=== PATIENT | female | born 1970 | race Caucasian/White ===

== ENCOUNTER → 2018-06-16 | Outpatient (CLI) | payer BC ==
[~2018-06-16] MED LIST: ACET-1966 PO; IBUP-136 PO
== END ==
LOC: LAB 15:12
PROVIDERS: ATTEND Surgery
DX: D22.5 Melanocytic nevi of trunk (principal)
CPT/HCPCS: 88305

== ENCOUNTER → 2018-09-15 | Outpatient (REF) | payer BC ==
[2018-09-15 14:27] LABS: PLATELET COUNT, AUTOMATED 301 K/uL (150-450)
== END ==
PROVIDERS: ATTEND Nurse Practitioner Family
DX: R07.9 Chest pain, unspecified (principal); R00.0 Tachycardia, unspecified
CPT/HCPCS: 82040; 82247; 82310; 82374; 82435; 82565; 82947; 84075; 84132; 84155; 84295; 84443; 84450; 84460; 84484; 84520; 85025

== ENCOUNTER → 2019-04-12 | Outpatient (CLI) | payer BC ==
--- NOTE | 2019-04-12 17:24 | RADIOLOGY IMAGING REPORT ---
FACILITY: [facility] PATIENT NAME: Genaro Sommer : 1970 MR: [id number] V: [id number] EXAM DATE: ORDERING PHYSICIAN: ZACHARY ZAMBRANO TECHNOLOGIST: Location: [facility] - [place] Patient: Genaro Sommer : 1970 Visit/Account:[id number] Date of Sevice: 04/12/2019 Technique: CHEST PA LAT HISTORY: cough COMPARISON: None available Findings: The lungs are clear. No pleural effusion or pneumothorax. The cardiomediastinal silhouett e is unremarkable. Impression: 1. No acute cardiopulmonary process. Report Dictated By: Carlos Ambrocio DO at 04/12/2019 5:17 PM Report E-Signed By: Carlos Ambrocio DO at 04/12/2019 5:20 PM WSN:[id number]
--- NOTE | 2019-04-12 17:26 | RADIOLOGY IMAGING REPORT ---
FACILITY: [facility] PATIENT NAME: Genaro Sommer : 1970 MR: [id number] V: [id number] EXAM DATE: ORDERING PHYSICIAN: ZACHARY ZAMBRANO TECHNOLOGIST: Location: [facility] - [place] Patient: Genaro Sommer : 1970 Visit/Account:[id number] Date of Sevice: 04/12/2019 Technique: CERVICAL SPINE 2 OR 3 VIEW HISTORY: neck pain Comparison studies: None FINDINGS: There is no acute fracture. Straightening of the normal cervical lordosis is present which may be secondary to patient positioning or muscular spasm. Uncovertebral facet arthropathy is noted. There is intervertebral disc space narrowing and endplate osteophyte formation. These findings are mo st conspicuous within the mid and lower cervical spine. The vertebral body heights are preserved. No prevertebral soft tissue swelling. IMPRESSION: 1. Degenerative findings of the cervical spine as characterized above. Report Dictated By: Carlos Ambrocio DO at 04/12/2019 5:20 PM Report E-Signed By: Carlos Ambrocio DO at 04/12/2019 5:21 PM WSN:[id number]
--- NOTE | 2019-04-12 17:27 | RADIOLOGY IMAGING REPORT ---
FACILITY: [facility] - [place] PATIENT NAME: Genaro Sommer : 1970 MR: [id number] V: [id number] EXAM DATE: ORDERING PHYSICIAN: ZACHARY ZAMBRANO TECHNOLOGIST: Location: [facility] - [place] Patient: Genaro Sommer : 1970 Visit/Account:[id number] Date of Sevice: 04/12/2019 Technique: HIP RIGHT HISTORY: neck pain Comparison studies: None FINDINGS: There is no acute fracture. Degenerative changes are noted at the pubic symphysis. The alig nment of the right hip is preserved. There is marginal osteophyte formation within the right femoroac etabular joint. IMPRESSION: 1. Mild degenerative findings of the right hip as above. Report Dictated By: Carlos Ambrocio DO at 04/12/2019 5:21 PM Report E-Signed By: Carlos Ambrocio DO at 04/12/2019 5:22 PM WSN:[id number]
== END ==
LOC: RAD 16:21
PROVIDERS: ATTEND Internal Medicine
DX: M47.892 Other spondylosis, cervical region (principal); M16.11 Unilateral primary osteoarthritis, right hip; R05 Cough
CPT/HCPCS: 71046; 72040

== ENCOUNTER → 2019-04-13 | Outpatient (CLI) | payer BC ==
[2019-04-13 07:54] LABS: PLATELET COUNT, AUTOMATED 293 K/uL (150-450)
[2019-04-13 08:23] LABS: LDL CHOLESTEROL 132 mg/dl
== END ==
LOC: LAB 07:43
PROVIDERS: ATTEND Internal Medicine
DX: J45.909 Unspecified asthma, uncomplicated (principal); R05 Cough
CPT/HCPCS: 36415; 82040; 82247; 82310; 82374; 82435; 82465; 82565; 82947; 83718; 84075; 84132; 84155; 84295; 84443; 84450; 84460; 84478; 84520; 85025

== ENCOUNTER → 2019-04-18 | Outpatient (CLI) | payer BC | LOC: RESP 00:12 | PROVIDERS: ATTEND Internal Medicine | DX: J98.4 Other disorders of lung (principal) | CPT/HCPCS: 94060; 94726; 94729 ==

== ENCOUNTER → 2019-04-21 | Outpatient (CLI) | payer BC ==
--- NOTE | 2019-04-21 16:10 | RADIOLOGY IMAGING REPORT ---
FACILITY: [facility] - [place] PATIENT NAME: Genaro Sommer : 1970 MR: [id number] V: [id number] EXAM DATE: ORDERING PHYSICIAN: ZACHARY ZAMBRANO TECHNOLOGIST: Location: [facility] Patient: Genaro Sommer : 1970 Visit/Account:[id number] Date of Sevice: 04/21/2019 Exam type: SCOLIOSIS SERIES History: Right Hip and neck pain Comparison: Two-view chest April 12, 2019. Findings: There is a 22 degrees dextroconvex scoliosis of the thoracic spine with curvature centered around T9- 10. There is a 34.9 degrees levoconvex scoliosis of the lumbar spine with the curvature centered about L1 -2. Multilevel spondylotic changes identified IMPRESSION: 1. S-shaped scoliosis of the thoracal lumbar spine with a 22 degrees dextroconvex scoliosis of the t horacic spine and a 4.9 degrees levoconvex scoliosis of the lumbar spine Report Dictated By: Yelitza Hills MD at 04/21/2019 4:01 PM Report E-Signed By: Yelitza Hills MD at 04/21/2019 4:06 PM WSN:[email or web address]
== END ==
LOC: RAD 15:14
PROVIDERS: ATTEND Internal Medicine
DX: M41.25 Other idiopathic scoliosis, thoracolumbar region (principal)
CPT/HCPCS: 72081

== ENCOUNTER 2019-05-05 12:48 | Outpatient (RCR) | payer BC ==
--- NOTE | 2019-04-19 14:18 | PT INITIAL EVALUATION ---
MEDICAL DIAGNOSIS: neck pain, hip pain R TREATMENT DIAGNOSIS: same DATE OF ONSET: 04/19/16 SUBJECTIVE: Genaro Sommer presents to physical therapy with complaints of neck pain and R hip pain that started a long time ago. She reports that her neck pain started in her teenager years and over the years she has been taking Tylenol to combat the pain; however, recently she has had elevated liver enzymes. As a result, she has taken the Tylenol out of her daily life and the neck pain has become unmanageable; therefore, she would like to see if we have any techniques to improve the neck pain and manage it for the future so that she does not have increased risk for problems as she ages. She reports that her hip pain started approximately 5 years ago and she thought that daily exercise would improve her pain. She states that the exercise has not improved the pain in her hip but has abolished her pain in the R knee. Furthermore, she noticed changes within her hip that could be related to the scoliotic changes over the last 3-4 years. She reports that she has a pinching sensation with squatting and gets stuck due to the hip pain. Furthermore, she reports that lunges are difficult and feels like her R LE is much weaker than her L LE. She reports that her neck pain is constant and her R hip pain only occurs with certain movements. Pain location is L levator, [place] . Pain scale is 5 on a ten point pain scale. REHAB PROBLEM LIST: Increased Pain Decreased ROM Decreased Strength Decreased Endurance Decreased Balance Decreased Function Decreased ADL's Decreased Mobility Decreased Gait PREVIOUS MEDICAL HISTORY: See EMR OCCUPATION: Health OBJECTIVE: Posture: She demonstrates minimal changes with forward head, B rounded shoulders, increased thoracic kyphosis, and decreased lumbar lordosis ROM: Cervical AROM: flexion: moderate restriction with muscular end feel, extension: minimal restriction with normal end feel. R sidebending: moderate restriction with muscular tightness on R cervical spine. L sidebending: moderate restriction with muscular tightness on L cervical spine. R rotation: moderate restriction with muscular tightness and pinching on the L. L rotation: minimal restriction with muscular tightness. Protrusion: NIL with normal end feel. Retraction: moderate restriction with pinching end feel. Will assess R hip next session Strength: R UE: 4/5. L LE: 5/5. R LE: 4/5. Palpation: TTP: L levator, [place], R anterior hip Sensation: Will test next session Special Tests: Repeated RET: pinching sensation during the movement and better following. Repeated RET with extension: pinching sensation during the movement and better following with increased cervical AROM following. Will assess R hip next session Mobility: Independent Gait: She demonstrated normal gait mechanics with minimal deviations of decreased velocity, increased lateral trunk movements, and decreased pelvic mobility. ASSESSMENT: Timethea will benefit from skilled physical therapy addressing the listed impairments to improve function and QOL. Her provisional cervical classification is posterior derangement that responded to extension based principles that demonstrated increased cervical AROM in all directions and normalized end feels. She is independent in her specific exercise. Short Term Goals 2 weeks: Pt will demonstrate cervical directional preference to improve function and QOL. 4 weeks: If pt demonstrates directional preference, she will demonstrate increased cervical AROM, centralized pain, and improved function and QOL. 6 weeks: If pt demonstrates directional preference, she will demonstrate abolished cervical pain, increased cervical AROM, and return to prior level of function. 8 weeks: Pt will demonstrate increased hip mobility with abolished popping and able to perform full squat without any pain to improve function and QOL. Patient's Goals prepare for the future in improving cervical spine and hip to prevent problems in the future or to prevent disability in her older years PLAN: Patient to be seen for Manual Therapy/STM/MET Strengthening/condition Range of Motion Spinal Stabilization Work Hardening/Cond Stretching Neuromuscular Re-ed Closed Chain Program Posture/Body mechanics Gait Trg/Balance Trg Home Exercise Program Therapeutic Activities 2x/Week for 2 Months If you have any questions, comments, or concerns about this report or plan, please contact me at . Thank you, Rupesh Pisano, PT, DPT MTDD
[~2019-05-05 12:48] MED LIST changes: +BUDE10.25 IH; +FLUT16SP19 NS
--- NOTE | 2019-05-17 12:59 | PT PLAN OF CARE ---
Physician: Bebo Tate MD Patient is being seen: 2x/week Therapist: Rupesh Pisano, PT, DPT Medical Diagnosis: neck pain, hip pain R Treatment Diagnosis: same Date of Onset: 04/19/16 Date of Initial Evaluation: 04/19/19 Date patient was last seen: 05/05/19 Number of treatments: 6 Number of cancellations/No shows: 0 INTERVENTIONS: Manual Therapy/STM/MET Strengthening/condition Range of Motion Spinal Stabilization Work Hardening/Cond Stretching Neuromuscular Re-ed Closed Chain Program Posture/Body mechanics Gait Trg/Balance Trg Home Exercise Program Therapeutic Activities GOALS: 2 weeks: Pt will demonstrate cervical directional preference to improve function and QOL. MET 4 weeks: If pt demonstrates directional preference, she will demonstrate increased cervical AROM, centralized pain, and improved function and QOL MET 6 weeks: If pt demonstrates directional preference, she will demonstrate abolished cervical pain, increased cervical AROM, and return to prior level of function. MET 8 weeks: Pt will demonstrate increased hip mobility with abolished popping and able to perform full squat without any pain to improve function and QOL. Progressed PATIENT'S GOAL: prepare for the future in improving cervical spine and hip to prevent problems in the future or to prevent disability in her older years Status of Patient's Goals: Progressed well with cervical spine Patient Compliance: Progressed well. Prognosis: Good Reasons for continuing therapy: This is a discharge note for Genaro Sommer. She reports that her insurance runs out this week and will not have insurance for another month or so. However, she reports that her neck is doing well and has abolished cervical neck pain and is pleased with her specific exercise and how to move forward with her program. Furthermore, she reports that her low back and hip pain are decreasing but it has not responded as well as the cervical spine. She reports that she feels like she knows how to move forward to improve function and QOL. As a result, she will be discharged from PT to [facility]. Posture: She demonstrates minimal changes with forward head, B rounded shoulders, increased thoracic kyphosis, and decreased lumbar lordosis ROM: Cervical AROM: flexion: NIL with muscular end feel, extension: NIL with normal end feel. R sidebending: NIL with muscular tightness on R cervical spine. L sidebending: NIL with muscular tightness on L cervical spine. R rotation: NIL with muscular tightness and pinching on the L. L rotation: NIL with muscular tightness. Protrusion: NIL with normal end feel. Retraction: NIL with normalized end feel. Will assess R hip next session Strength: R UE: 4/5. L LE: 5/5. R LE: 4/5. Palpation: TTP: L levator, [place], R anterior hip Special Tests: Repeated RET with extension Mobility: Independent If you have any questions, please contact me at [phone]. Thank you, Rupesh Pisano, PT, DPT MTDD
== END 2019-05-05 18:00 | disposition home or self-care (01) ==
LOC: PT 12:48
PROVIDERS: ATTEND Internal Medicine
DX: M54.2 Cervicalgia (principal); M25.551 Pain in right hip
CPT/HCPCS: 97162